=== PATIENT | female | born 1960 | race Caucasian/White ===

== ENCOUNTER → 2016-07-24 | Outpatient (CLI) | payer BC ==
--- NOTE | 2016-07-24 13:06 | REPMRS ---
Patient History The patient states she had a clinical breast exam in 08/06 Patient is postmenopausal. Family history of breast cancer in 2 maternal aunts at age 50 or over, prostate cancer in 2 maternal uncles at age 50 or over, and colorectal cancer in maternal uncle at age 50 or over. Digital Woman Screen Mammo: July 24, 2016 - Exam #: [id number] Bilateral CC and MLO view(s) were taken. Technologist: Ellie Marshall, Technologist Prior study comparison: July 04, 2015, digital woman screen mammo performed at [facility]. July 01, 2014, digital woman screen mammo performed at [facility]. June 30, 2013, digital woman screen mammo performed at [facility]. FINDINGS: There are scattered fibroglandular densities. There has been no change in the appearance of the mammogram from the prior studies. There is a mild amount of scattered fibroglandular density which is fairly symmetric. There is no interval development of dominant mass, architectural distortion, or clustered microcalcification suggestive of malignancy. ASSESSMENT: BI-RADS/ACR category 1 mammogram. Negative. Recommendation Routine screening mammogram in 1 year (for women over age 40). This mammogram was interpreted with the aid of an FDA-approved computer-aided dectection system. Electronically Signed By: Elgin Diallo MD 07/24/16 [id number]
== END ==
LOC: M WHC 08:06
PROVIDERS: ATTEND Nurse Practitioner Family
DX: Z12.31 Encounter for screening mammogram for malignant neoplasm of breast (principal)